=== PATIENT | female | born 2000 | race Caucasian/White ===

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

== ENCOUNTER 2020-01-08 15:30 | Outpatient (CLI) | payer OTHER, SELFPAY ==
[2020-01-08 16:12] LABS: HCT 37.9 % (36.0-46.0); HGB 12.8 g/dL (12.0-15.5); Mean Corp. HGB Concentration 33.8 g/dL (32.0-36.0); Mean Corpuscular Hemoglobin 29.2 pg (27.0-33.0); Mean Corpuscular Volume 86.3 fL (80-95); Mean Platelet Volume 8.6 fL (8.0-11.0); Platelet Count 410 x1000/uL (130-400); RBC 4.39 m/cumm (4.00-5.20); RBC Distribution Width 11.6 % (11.7-14.6); White Blood Cell Count 5.07 k/cumm (4.4-10.8)
[2020-01-08 16:53] LABS: Ferritin 52 ng/mL (8-252); TSH 0.45 uIU/mL (0.52-4.13)
[2020-01-11 06:43] LABS: Vitamin D 25 Total 10.2 ng/ml (30-100)
== END 2020-01-08 15:50 ==
PROVIDERS: PCP Family Medicine; Visit Provider Nurse Practitioner Psychiatric/Mental Health
DX: R53.83 Other fatigue (principal)
CPT/HCPCS: 36415; 82306; 85027; 82728; 84443

== ENCOUNTER 2020-01-28 11:01 | Outpatient (CLI) | payer OTHER, SELFPAY ==
[2020-01-28 12:29] LABS: ALT 20 U/L (14-59); AST 11 U/L (15-37); Albumin 3.6 g/dL (3.4-5.0); Alkaline Phosphatase 102 U/L (46-116); Anion Gap 9.5 mmol/L (3-11); BUN 9 mg/dL (7-18); Bilirubin, Total 0.2 mg/dL (0.2-1.0); CO2 25.5 mmol/L (21.0-32.0); CREATININE 0.95 mg/dL (0.55-1.02); Chloride 104 mmol/L (98-107); Glucose 109 mg/dL (74-106); Potassium 3.9 mmol/L (3.5-5.1); Sodium 139 mmol/L (136-145); TSH (W/Ref FT4) 0.47 uIU/mL (0.52-4.13); Total Protein 7.1 g/dL (6.4-8.2)
[2020-01-28 12:40] LABS: T4 13.9 ug/mL (4.7-13.3)
[2020-01-28 16:27] LABS: T3, Total 176 ng/dL (97-169)
[2020-01-29 09:44] LABS: Thyroglobulin Antibody <15 U/mL (<=60)
[2020-01-29 09:47] LABS: Thyroperoxidase Antibody <28 U/mL (<=60)
[2020-02-01 10:55] LABS: FREE T4 1.08 ng/dL (0.78-1.34)
[2020-02-05 13:06] LABS: Thyroid Stimulating Immunoglob <1.0 TSI index (<=1.3)
== END 2020-01-28 11:21 ==
PROVIDERS: PCP Family Medicine; Visit Provider Family Medicine
DX: R53.83 Other fatigue (principal); R25.1 Tremor, unspecified; E05.80 Other thyrotoxicosis without thyrotoxic crisis or storm
CPT/HCPCS: 36415; 80053; 84436; 84439; 84443; 84445; 84480; 86376; 86800

== ENCOUNTER 2020-02-11 09:33 | Outpatient (CLI) | payer OTHER, SELFPAY ==
[2020-02-14 02:51] LABS: SARS-CoV-2 RNA Undetected (Undetected); SARS-CoV-2 Specimen Source Nasopharynx
== END 2020-02-11 09:53 ==
PROVIDERS: PCP Family Medicine; Visit Provider Nurse Practitioner Family
DX: R50.9 Fever, unspecified (principal); R06.02 Shortness of breath
CPT/HCPCS: U0003

== ENCOUNTER 2020-02-18 08:08 | Outpatient (CLI) | payer OTHER, SELFPAY ==
--- NOTE | 2020-02-18 10:00 | DI.RAD_ITS ---
EXAM: XR CHEST 2V PA LATERAL CLINICAL HISTORY: FEVER, R50.9,COUGH,R05,NEG FOR COVID TECHNIQUE: 2D digital imaging was performed. COMPARISON: XR CHEST 2V PA LATERAL from 09/27/2019 FINDINGS: The heart is not enlarged. The lungs are clear and well expanded. No pleural effusion seen. Mediastin al contours appear intact. IMPRESSION: Normal chest
== END 2020-02-18 08:28 ==
PROVIDERS: PCP Family Medicine; Visit Provider Family Medicine
DX: R50.9 Fever, unspecified (principal); R05 Cough
CPT/HCPCS: 71046

== ENCOUNTER 2020-03-01 00:59 | Outpatient (CLI) | payer OTHER, SELFPAY ==
[2020-03-01 17:12] LABS: FREE T4 1.02 ng/dL (0.76-1.46); TSH (W/Ref FT4) 0.48 uIU/mL (0.36-3.74)
[2020-03-01 21:39] LABS: T3, Total 186 ng/dL (97-169)
[2020-03-02 09:12] LABS: FSH 5.1 mIU/mL (See Note); LH 2.5 mIU/mL (See Note)
[2020-03-02 09:31] LABS: Thyroglobulin Antibody <15 U/mL (<=60)
[2020-03-04 13:37] LABS: Thyroperoxidase Antibody <28 U/mL (<=60)
[2020-03-04 23:50] LABS: Thyroid Stimulating Immunoglob <1.0 TSI index (<=1.3)
== END 2020-03-01 01:19 ==
PROVIDERS: PCP Family Medicine; Visit Provider Family Medicine
DX: R23.2 Flushing (principal); E05.80 Other thyrotoxicosis without thyrotoxic crisis or storm; R25.1 Tremor, unspecified; R53.83 Other fatigue
CPT/HCPCS: 36415; 83001; 83002; 84439; 84443; 84445; 84480; 86376; 86800

== ENCOUNTER 2020-03-11 16:34 | Outpatient (REF) | payer OTHER, SELFPAY ==
[2020-03-11 19:19] LABS: PROTEIN 20.6 mg/dL (0.0-11.9)
[2020-03-11 19:41] LABS: TOTAL PROTEIN,URINE TIMED 123.6 mg/24hr (0.0-149.1); Total Volume 600 ml
[2020-03-16 16:57] LABS: Urine Volume 600 mL
[2020-03-17 02:15] LABS: Metanephrines, U 64 mcg/24 h; Normetanephrine, U 157 mcg/24 h; Total Metanephrines, U 221 mcg/24 h; Urine Volume 600 mL
[2020-03-18 09:18] LABS: 5-Hydroxyindoleacetic Acid, U 2.8 mg/24 h (<=6.1); Urine Volume 600 mL
[2020-03-18 19:28] LABS: Histamine, 24hr Urine 0.024 mg/24 h
[2020-03-31 13:00] LABS: Prostaglandin D2, Random Ur 103 ng/L
== END 2020-03-11 16:54 ==
LOC: NCHCN 16:34
PROVIDERS: PCP Family Medicine; Visit Provider Family Medicine
DX: R23.2 Flushing (principal)
CPT/HCPCS: 84150; 81050; 82384; 83088; 83497; 83835; 84155

== ENCOUNTER 2020-04-08 01:47 | Outpatient (CLI) | payer OTHER, SELFPAY ==
[2020-04-08 14:19] LABS: TSH 0.31 uIU/mL (0.36-3.74); Vitamin B12 234 pg/mL (193-986)
[2020-04-08 14:32] LABS: ESR 25 mm/hr (0-20)
[2020-04-08 14:37] LABS: FREE T4 1.19 ng/dL (0.76-1.46)
[2020-04-08 22:00] LABS: T3,Free 3.5 pg/mL (2.8-5.3)
[2020-04-11 10:31] LABS: Vitamin D 25 Total 82.2 ng/ml (30-100)
[2020-04-11 13:44] LABS: Adrenocorticotropic Hormone, P <5.0 pg/mL
[2020-04-11 14:10] LABS: ANA Interpretation Negative (Negative)
== END 2020-04-08 02:07 ==
PROVIDERS: PCP Family Medicine; Visit Provider Internal Medicine Endocrinology, Diabetes & Metabolism
DX: R23.2 Flushing (principal); E55.9 Vitamin D deficiency, unspecified; R53.82 Chronic fatigue, unspecified; T78.3XXD Angioneurotic edema, subsequent encounter
CPT/HCPCS: 36415; 82306; 82533; 85652; 82024; 82607; 82652; 84439; 84443; 84481; 86038

== ENCOUNTER 2020-06-27 02:31 | Outpatient (CLI) | payer OTHER, SELFPAY ==
[2020-06-27 11:59] LABS: Vitamin D 25 Total 68.6 ng/ml (30-100)
[2020-06-27 12:04] LABS: TSH 0.42 uIU/mL (0.36-3.74); Vitamin B12 692 pg/mL (193-986)
[2020-06-27 12:21] LABS: FREE T4 1.16 ng/dL (0.76-1.46)
[2020-06-27 16:07] LABS: T3,Free 2.7 pg/mL (2.8-5.3)
== END 2020-06-27 02:51 ==
PROVIDERS: PCP Family Medicine; Visit Provider Internal Medicine Endocrinology, Diabetes & Metabolism
DX: R23.2 Flushing (principal); E55.9 Vitamin D deficiency, unspecified; R53.82 Chronic fatigue, unspecified; T78.3XXD Angioneurotic edema, subsequent encounter; E05.90 Thyrotoxicosis, unspecified without thyrotoxic crisis or storm
CPT/HCPCS: 36415; 82306; 82607; 84439; 84443; 84481

== ENCOUNTER 2021-06-28 13:33 | Outpatient (REF) | payer OTHER, SELFPAY ==
[2021-06-28 20:05] LABS: HCT 37.3 % (36.0-46.0); HGB 12.2 g/dL (11.2-15.7); MCH 27.8 pg (27.0-33.0); MCHC 32.7 % (32.0-36.0); MPV 9.5 fL (8.0-11.0); Platelet Count 424 10^3/uL (130-400); RBC 4.39 10^6/uL (3.93-5.22); RDW 11.9 % (11.7-14.6); RDW-SD 36.9 fL; WBC 5.38 10^3/uL (4.4-10.8)
[2021-06-28 20:51] LABS: Ferritin 32 ng/mL (8-252); TSH 0.68 uIU/mL (0.36-3.74); Vitamin B12 412 pg/mL (193-986)
[2021-06-28 21:08] LABS: FREE T4 1.09 ng/dL (0.76-1.46)
[2021-06-29 00:46] LABS: Vitamin D 25 Total 45.2 ng/mL (30-100)
== END 2021-06-28 13:34 | disposition home or self-care (01) ==
LOC: NCHCN 13:33
PROVIDERS: PCP Family Medicine; Visit Provider Family Medicine
DX: E55.9 Vitamin D deficiency, unspecified (principal); E05.80 Other thyrotoxicosis without thyrotoxic crisis or storm; E53.8 Deficiency of other specified B group vitamins; D50.9 Iron deficiency anemia, unspecified
CPT/HCPCS: 82306; 85027; 82607; 82728; 84439; 84443

== ENCOUNTER 2021-10-04 17:08 | Outpatient (REF) | payer OTHER, SELFPAY ==
[2021-10-07 11:09] LABS: COVID-19 RT-PCR UVMMC Result Negative (Negative)
== END 2021-10-04 17:09 | disposition home or self-care (01) ==
LOC: LBN 17:08
PROVIDERS: PCP Family Medicine; Visit Provider Physician Assistant
DX: Z20.822 Contact with and (suspected) exposure to COVID-19 (principal)
CPT/HCPCS: U0003

== ENCOUNTER 2021-12-12 00:50 | Emergency (ER) | payer OTHER, SELFPAY ==
[2021-12-12 01:03] VITALS: BP 118/74; PULSE 113; RESP 16; TEMP 36.6; O2SAT 100
[2021-12-12 01:18] LABS: Abs Immature Grans 0.03 10^3/uL (0.0-0.06); Absolute Basophil Count 0.07 10^3/uL (0.0-0.2); Absolute Lymphocyte Count 2.32 10^3/uL (1.2-3.4); Absolute Monocyte Count 0.51 10^3/uL (0.1-0.8); Basophils % 0.6; Eosinophils % 1.8; HCT 35.3 % (36.0-46.0); HGB 11.5 g/dL (11.2-15.7); Immature Grans % 0.3; Lymphocytes % 21.3; MCH 28.5 pg (27.0-33.0); MCHC 32.6 % (32.0-36.0); MCV 87.6 fL (80-95); MPV 8.8 fL (8.0-11.0); Monocytes % 4.7; Neutrophils % 71.3; Nucleated RBC 0 %; Platelet Count 373 10^3/uL (130-400); RBC 4.03 10^6/uL (3.93-5.22); RDW 11.7 % (11.7-14.6); RDW-SD 37.3 fL; WBC 10.87 10^3/uL (4.4-10.8)
[2021-12-12 01:19] LABS: Absolute Neutrophil Count 7.75 10^3/uL (1.2-6.7)
[2021-12-12] MEDS: Normal Saline 1,000 ML 1000 ML IV (01:20)
[2021-12-12] MEDS: MORPHine 4 MG/ML SYR IVP (01:20)
--- NOTE | 2021-12-12 01:25 | W.ED.GENAD ---
Discharge Plan Disposition Patient Disposition: HOME Condition: Good Discharge Details Clinical Impression: Right kidney stone Primary Care Provider: Nida Peralta ED Provider: Christiano Lambert Home Meds and New Rx's Prescriptions: New tamsulosin [Flomax] 0.4 mg capsule 0.4 mg PO DAILY Qty: 5 RF: 0 cephalexin 500 mg capsule 500 mg PO QID 5 Days Qty: 20 RF: 0 Continued bupropion HCl (smoking deter) 150 mg tablet extended release 12 hr 150 mg PO DAILY RF: 0 albuterol sulfate [Proventil HFA] 90 mcg/actuation HFA aerosol inhaler 2 puff inhalation Q6H PRN (Reason: shortness of breath or wheezing) Qty: 8.5 RF: 0 benzonatate 100 mg capsule 100 mg PO TID PRN (Reason: cough) Qty: 14 RF: 0 norethindrone-e.estradiol-iron [Junel Fe 24] 1 mg-20 mcg (24)/75 mg (4) tablet 1 tab PO DAILY Qty: 28 RF: 12 ibuprofen 200 MG capsule 400 mg PO PRN RF: 0 fluoxetine [Prozac] 40 mg capsule 60 mg PO DAILY RF: 0 cetirizine 10 mg tablet 10 mg PO DAILY RF: 0 epinephrine [EpiPen 2-Sarthak] 0.3 mg/0.3 mL auto-injector 0.3 mg IM ONCE RF: 0 topiramate [Topamax] 25 mg tablet 25 mg PO DAILY Qty: 30 RF: 11 ergocalciferol (vitamin D2) 50,000 unit tablet 50,000 unit PO .every 2 weeks RF: 0 lamotrigine 25 mg tablet 25 mg PO HS RF: 0 fluticasone propionate [Flonase Allergy Relief] 50 mcg/actuation spray,suspension 1 spray intranasal DAILY RF: 0 Discharge Instructions Instructions: Kidney Stones (ED) Additional Instructions: At this time you have evidence of a small kidney stone. Will likely pass shortly as it is near the end of its course. We have sent a prescription for Flomax to your pharmacy, this will help it pass more quickly. Please take it as directed. You can stop taking the medication once your pain is completely gone. Please take the antibiotic Keflex as directed. This is also been sent to your pharmacy. Please use the strainer to strain and collect the kidney stone. This can then be analyzed by your family doctor. We have sent you home with a small bottle of Drake pain pills. Please take these only as needed. In the meantime you can take Tylenol or Motrin as needed for pain. If you notice any worsening of your symptoms, or any new symptoms such as vomiting, diarrhea, fever, chills, shortness of breath, chest pain, numbness, weakness, or fainting , please return immediately to the emergency department for reevaluation. Please follow up with your primary care provider as soon as possible for reassessment and reevaluation. As always, it was a pleasure participating in your medical care today. Referrals: Nida Peralta MD [Primary Care Provider] - Medical Decision Making 21-year-old female with a past medical history of endometriosis, reactive airway disease, who presents today for evaluation of right-sided flank pain. Patient states that at 10 PM she developed right-sided right-sided flank pain. She describes it as a sharp and achy in nature. Does not radiate anywhere else except for the flank. Earlier this morning she did have some generalized abdominal achiness, but that resolved. She does admit to mild difficulty urinating, but does state that she has had no burning with urination, blood, nausea vomiting or diarrhea. She is not on her period. She denies any previous abdominal surgeries. She does have a family history of kidney stones. She did take NSAIDs prior to arrival and this did not help her symptoms. Other complaints at no other complaints at this time. No other modifying factors. Demonstrates physical exam demonstrates mild right-sided CVA tenderness. However she has no abdominal tenderness on palpation. No pain to McBurney's point, negative Riggs sign. No vaginal complaints. Differential is highest for UTI versus kidney stone. Less likely for appendicitis. We will get a urinalysis, and then determine next steps for CT imaging after that. We will monitor closely treat the patient's pain and reassess 3:06 AM Laboratory work-up has returned unremarkable. Significant elevation in the WBC count, no bandemia. Renal function stable. Urinalysis shows moderate blood, small leuk esterase, 20-50 RBCs, 5-10 WBCs. Negative nitrites. Patient's pain notably improved. CT scan shows evidence of a very small 2 mm stone in the distal right ureter. Symptoms notably clinically inconsistent with a septic stone at this time. Out of an abundance of precaution to prevent any significant infection we will give a dose of ceftriaxone here, as well as a dose of Flomax. Will give Keflex for home use out of abundance of precaution. Patient stable for discharge with close follow-up with PCP in the 24 to 48 hours. Discussed concerning red flags for which to return. I have extensively reviewed the treatment plan and discharge instructions with the patient and their family. I have addressed all patient concerns at this time. The patient and family was made aware of what symptoms to monitor for that would warrant a return to the emergency department. Discussed the plan with the patient and family, they demonstrate verbal understanding and agreement with our assessment and plan at this time. The documentation in this chart was dictated using [employer] dictation software. Please excuse any dictation errors. FINDINGS: Liver: Hepatomegaly and diffuse fatty infiltrationNo mass. Gallbladder and bile ducts: Normal. No calcified stones. No ductal dilation. Pancreas: Normal. No ductal dilation. Spleen: Normal. No splenomegaly. Adrenal glands: Normal. No mass. Kidneys and ureters: Distal right ureteral calculus measuring 2 mm suspected axial image 68 with minimal/mild right hydroureteronephrosis. Mild renal scarring on the right. Left renal cyst Stomach and bowel: Unremarkable. No obstruction. No mucosal thickening. Appendix: No evidence of appendicitis. Intraperitoneal space: Unremarkable. No free air. No significant fluid collection. Vasculature: Unremarkable. No abdominal aortic aneurysm. Lymph nodes: Unremarkable. No enlarged lymph nodes. Urinary bladder: Unremarkable as visualized. Reproductive: Unremarkable as visualized. Bones/joints: Unremarkable. No acute fracture. Soft tissues: Unremarkable. IMPRESSION: Minimal/mild right hydroureteronephrosis secondary to a presumed distal right ureteral calculus measuring approximately 2 mm Thank you for allowing us to participate in the care of your patient. Dictated and Authenticated by: Nicolas Hampton MD 12/12/2021 3:05 AM Eastern Time ([place] & [place]) HPI General Date/Time Provider Initiated Documentation: 12/12/21 00:51. HPI Narrative: 21-year-old female with a past medical history of endometriosis, reactive airway disease, who presents today for evaluation of right-sided flank pain. Patient states that at 10 PM she developed right-sided right-sided flank pain. She describes it as a sharp and achy in nature. Does not radiate anywhere else except for the flank. Earlier this morning she did have some generalized abdominal achiness, but that resolved. She does admit to mild difficulty urinating, but does state that she has had no burning with urination, blood, nausea vomiting or diarrhea. She is not on her period. She denies any previous abdominal surgeries. She does have a family history of kidney stones. She did take NSAIDs prior to arrival and this did not help her symptoms. Other complaints at no other complaints at this time. No other modifying factors. Related Data Home Medications Medication Instructions Recorded Confirmed ibuprofen 400 mg PO PRN tab-cap 12/05/17 12/12/21 fluoxetine 40 mg capsule 60 mg PO DAILY tab-cap 04/10/19 12/12/21 norethindrone 1 mg-ethinyl 1 tab PO DAILY #28 tab 04/29/20 12/12/21 estradiol 20 mcg (24)-iron 75 mg (4) tablet cetirizine 10 mg tablet 10 mg PO DAILY 09/21/20 12/12/21 epinephrine 0.3 mg/0.3 mL 0.3 mg IM ONCE 09/21/20 12/12/21 injection, auto-injector topiramate 25 mg tablet 25 mg PO DAILY #30 tab 04/04/21 12/12/21 ergocalciferol (vitamin D2) 50,000 50,000 unit PO .every 2 weeks tab 06/28/21 12/12/21 unit tablet lamotrigine 25 mg tablet 25 mg PO HS tab 06/28/21 12/12/21 albuterol sulfate 90 mcg/actuation 2 puff INHALATION Q6H PRN #8.5 g 10/04/21 11/21/21 aerosol inhaler benzonatate 100 mg capsule 100 mg PO TID PRN #14 cap 10/04/21 10/04/21 bupropion HCl (smoking deter) 150 150 mg PO DAILY 10/04/21 12/12/21 mg tablet,12 hr sustained-release(smoking deterrent) fluticasone propionate 50 1 spray INTRANASAL DAILY 10/23/21 12/12/21 mcg/actuation nasal spray,suspension cephalexin 500 mg PO QID 5 Days #20 cap 12/12/21 tamsulosin [Flomax] 0.4 mg PO DAILY #5 cap 12/12/21 Previous Rx's Medication Instructions Recorded norethindrone 1 mg-ethinyl 1 tab PO DAILY #28 tab 04/29/20 estradiol 20 mcg (24)-iron 75 mg (4) tablet topiramate 25 mg tablet 25 mg PO DAILY #30 tab 04/04/21 albuterol sulfate 90 mcg/actuation 2 puff INHALATION Q6H PRN #8.5 g 10/04/21 aerosol inhaler benzonatate 100 mg capsule 100 mg PO TID PRN #14 cap 10/04/21 cephalexin 500 mg PO QID 5 Days #20 cap 12/12/21 tamsulosin [Flomax] 0.4 mg PO DAILY #5 cap 12/12/21 Allergies Allergy/AdvReac Type Severity Reaction Status Date / Time kiwi Allergy itchy Verified 12/12/21 01:07 FLU SHOT AdvReac Mild ARM Uncoded 12/12/21 01:07 SWELLS AT INJECTION SITE General Stated Complaint: FlankPain ELIAN: 3 Review of Systems All systems reviewed & are unremarkable except as noted in HPI and below PFSH All Active Problems (Updated 12/12/21 @ 03:16 by Christiano Lambert DO) Right kidney stone (Acute) Impacted cerumen, bilateral (Acute) Migraine headache without aura (Acute) Conductive hearing loss, external ear (Acute) Anxiety (Chronic) Abnormal thyroid function test (Acute) Hot flashes (Acute) Dysmenorrhea (Acute) Chronic daily headache (Acute 01/02/18) Medical History Allergic rhinitis Anxiety Depression Pneumonia PTSD (post-traumatic stress disorder) Stye left eye Tympanic membrane rupture rt side, spontaneous Surgical History H/O wisdom tooth extraction Family History Brother ADHD Father Sleep apnea Mother Prediabetes Social History Smoking/Tobacco Use Status: Never Smoking risk assessment performed?: Yes Alcohol Intake: never Drug use: Never Substance use type: does not use Household members: family Housing: house 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 3.ENT: Atraumatic external nose and ears. Moist MM. Neck: Symmetric, trachea midline, No thyromegaly. 4.CVS: +S1/S2, No murmurs or gallops. Peripheral pulses 2+ and equal in all extremities. Brisk capillary refill in all extremities. 5.RESP: Unlabored respiratory effort. Clear to auscultation bilaterally. No wheezes rales or rhonchi 6.GI: Soft, Nontender/Nondistended, mild right-sided CVA tenderness on percussion no pain at McBurney's point, negative Riggs sign 7.MSK: Normocephalic/Atraumatic, Extremities w/o deformity or ttp No cyanosis or clubbing, Normal movement of all extremities 8.Skin: Warm, Dry. No rashes or lesions. 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 Sensation grossly intact, no focal neurologic deficits. 10.Psych: (AAO) x3. Appropriate mood and affect Course Vital Signs Vital signs: Vital Signs Temperature 36.6 C 12/12/21 01:03 Pulse 113 H 12/12/21 01:03 Respiratory Rate 16 12/12/21 01:03 Blood Pressure 118/74 12/12/21 01:03 Pulse Oximetry 100 12/12/21 01:03 Temperature 36.6 C 12/12/21 01:03 Temperature Source Skin 12/12/21 01:03 Pulse 113 H 12/12/21 01:03 Respiratory Rate 16 12/12/21 01:03 Blood Pressure 118/74 12/12/21 01:03 Pulse Oximetry 100 12/12/21 01:03 Pain Level 10 12/12/21 01:20 Lab/Test Results Lab/Test Results: Laboratory Tests Range/Units 12/12/21 01:15 WBC (4.4-10.8) 10^3/uL 10.87 H RBC (3.93-5.22) 10^6/uL 4.03 Hgb (11.2-15.7) g/dL 11.5 Hct (36.0-46.0) % 35.3 L MCV (80-95) fL 87.6 MCH (27.0-33.0) pg 28.5 MCHC (32.0-36.0) % 32.6 RDW (11.7-14.6) % 11.7 Plt Count (130-400) 10^3/uL 373 MPV (8.0-11.0) fL 8.8 Immature Gran % 0.3 Neutrophils % 71.3 Lymphocytes % 21.3 Monocytes % 4.7 Eosinophils % 1.8 Basophils % 0.6 Nucleated RBC % % 0 Absolute Neutrophils (1.2-6.7) 10^3/uL 7.75 H Absolute Lymphocytes (1.2-3.4) 10^3/uL 2.32 Absolute Monocytes (0.1-0.8) 10^3/uL 0.51 Absolute Eosinophils (0.0-0.7) 10^3/uL 0.20 Absolute Basophils (0.0-0.2) 10^3/uL 0.07
[2021-12-12 01:31] LABS: ALT 16 U/L (14-59); AST 12 U/L (15-37); Albumin 3.6 g/dL (3.4-5.0); Alkaline Phosphatase 90 U/L (46-116); Anion Gap 5.1 mmol/L (3-11); BUN 11 mg/dL (7-18); Bilirubin, Total 0.1 mg/dL (0.2-1.0); CO2 22.9 mmol/L (21.0-32.0); Calcium 8.5 mg/dL (8.5-10.1); Chloride 102 mmol/L (98-107); Glucose 108 mg/dL (74-106); Potassium 3.3 mmol/L (3.5-5.1); Sodium 130 mmol/L (136-145); Total Protein 7.1 g/dL (6.4-8.2)
[2021-12-12] MEDS: Ondansetron 4 MG/2 ML VIAL (01:41)
[2021-12-12 01:59] LABS: Bilirubin Negative (Negative); Blood Moderate (Negative); Clarity Sl Cloudy (Clear); Glucose Negative (Negative); Ketones Negative (Negative); Leukocyte Esterase Small (Negative); Nitrite Negative (Negative); Specific Gravity >= 1.030 (1.005-1.025); Urobilinogen 0.2 EU/dL (Up TO 0.2)
--- NOTE | 2021-12-12 02:00 | DI.CT_ITS ---
Exam(s) CT ABDOMEN PELVIS W EXAM: CT ABDOMEN PELVIS W CLINICAL HISTORY: right flank pain, r/o kidney stone TECHNIQUE: Imaging Protocol: Axial computed tomography images with coronal and sagittal reformatted images were created and reviewed CONTRAST MATERIAL: Intravenous: Omnipaque 350 Contrast volume:100 mL Oral: No COMPARISON: No exams were available for comparison FINDINGS: ABDOMEN: Lung Bases: Normal where visualized. Liver: Normal density. No measurable mass. Portal, Superior Mesenteric, and Splenic Veins: Unremarkable. Gallbladder and Biliary Tract: No radiodense calculus or dilation. Pancreas: Normal density, no abnormal calcifications or inflammatory process. Spleen: Normal. Adrenals: No masses seen. Kidneys: Normal size, contour and axis. There is a 4 mm stone in the distal right ureter causing very mild hydronephrosis. The stone lies approximately 5 cm from the UVJ. There is mild delay and enhan cement of the right kidney secondary to the stone. Bilateral simple renal cysts. No follow-up is re commended. Abdominal Aorta: Abdominal portion non-dilated. Bowel: No obstruction or bowel wall thickening. No evidence of appendicitis. Peritoneal Cavity: No ascites, collection or mesenteric inflammatory response. No free air. Lymph Nodes: Within normal limits. Bones: Within normal limits for the patient's age. Soft Tissues: Unremarkable. PELVIS: Bladder: Symmetric distention, no gross wall thickening. Reproductive Organs: Unremarkable as visualized. Lymph Nodes: Within normal limits. Bones: Within normal limits for the patient's age. IMPRESSION: 4 mm distal right ureteral stone causing mild hydronephrosis. The stone lies proximally 5 cm from th e right UVJ. RADIATION DOSE DELIVERED: 719.18mGy.cm Total DLP DATA REPOSITORY: All CT scans at this facility are submitted to the National Radiology Data Registry (NRDR) Dose Index Registry (DIR) with the [employer] (ACR). RADIATION OPTIMIZATION: All CT scans at this facility use at least one of these dose optimization te chniques: automated exposure control; mA and/or kV adjustment per patient size (includes targeted exa ms where dose is matched to clinical indication); or iterative reconstruction.
[2021-12-12 02:01] LABS: Bacteria Few HPF (Negative); Epithelial Cells Few HPF (Negative); RBC 20-50 HPF (0-2)
[2021-12-12 02:02] LABS: C & S Indicated? Yes; Crystals Negative HPF (Negative); Mucus Negative (Negative)
[2021-12-12 02:14] VITALS: BP 111/69; PULSE 82; RESP 16; O2SAT 97
[2021-12-12] MEDS: Omnipaque 350 MG/ML 100 ML BTL IJ (02:27)
[2021-12-12] MEDS: Normal Saline Flush 10 ML SYR IVP (02:51)
--- NOTE | 2021-12-12 03:05 | DI.VRAD_ITS ---
PROCEDURE INFORMATION: Exam: CT Abdomen And Pelvis With Contrast Exam date and time: 12/12/2021 2:05 AM Age: 21 years old Clinical indication: Patient HX: Right flank pain, R/O kidney stone TECHNIQUE: Imaging protocol: Computed tomography of the abdomen and pelvis with contrast. Radiation optimization: All CT scans at this facility use at least one of these dose optimization techniques: automated exposure control; mA and/or kV adjustment per patient size (includes targeted exams where dose is matched to clinical indication); or iterative reconstruction. Contrast material: OMNIPAQUE 350; Contrast volume: 100 ml; Contrast route: INTRAVENOUS (IV); COMPARISON: CR XR CHEST 2V PA LATERAL 02/18/2020 10:11 AM FINDINGS: Liver: Hepatomegaly and diffuse fatty infiltrationNo mass. Gallbladder and bile ducts: Normal. No calcified stones. No ductal dilation. Pancreas: Normal. No ductal dilation. Spleen: Normal. No splenomegaly. Adrenal glands: Normal. No mass. Kidneys and ureters: Distal right ureteral calculus measuring 2 mm suspected axial image 68 with minimal/mild right hydroureteronephrosis. Mild renal scarring on the right. Left renal cyst Stomach and bowel: Unremarkable. No obstruction. No mucosal thickening. Appendix: No evidence of appendicitis. Intraperitoneal space: Unremarkable. No free air. No significant fluid collection. Vasculature: Unremarkable. No abdominal aortic aneurysm. Lymph nodes: Unremarkable. No enlarged lymph nodes. Urinary bladder: Unremarkable as visualized. Reproductive: Unremarkable as visualized. Bones/joints: Unremarkable. No acute fracture. Soft tissues: Unremarkable. IMPRESSION: Minimal/mild right hydroureteronephrosis secondary to a presumed distal right ureteral calculus measuring approximately 2 mm Dictated and Authenticated by: Nicolas Hampton MD. Ordering:CALEB Alvarado MD
[2021-12-12] MEDS: cefTRIAXone 1 GM/50 ML BAG IVPB (03:23)
[2021-12-12] MEDS: Tamsulosin 0.4 MG CAPCR PO (03:23)
[2021-12-12 03:48] VITALS: BP 97/56; PULSE 99; RESP 16; O2SAT 98
== END 2021-12-12 03:57 | disposition home or self-care (01) ==
PROVIDERS: Emergency Provider Student in an Organized Health Care Education/Training Program; PCP Family Medicine
DX: R20.1 Hypoesthesia of skin (principal)
CPT/HCPCS: 80053; 81025; 96361; 96365; 96375; 99285; 74177; 81003; 81015; 85025; 87086; 99284; J0696; J2270; J2405; J3490

== ENCOUNTER 2021-12-19 18:42 | Outpatient (REF) | payer OTHER, SELFPAY | END 2021-12-19 18:43 | disposition home or self-care (01) | LOC: LBN 18:42 | PROVIDERS: PCP Family Medicine; Visit Provider Nurse Practitioner Family | DX: R30.0 Dysuria (principal) | CPT/HCPCS: 87086 ==

== ENCOUNTER 2021-12-26 20:31 | Outpatient (REF) | payer OTHER, SELFPAY | END 2021-12-26 20:32 | disposition home or self-care (01) | LOC: NCHCN 20:31 | PROVIDERS: PCP Family Medicine; Visit Provider Nurse Practitioner Family | DX: R30.0 Dysuria (principal) | CPT/HCPCS: 87086 ==

== ENCOUNTER 2022-01-18 16:29 | Outpatient (REF) | payer OTHER, SELFPAY ==
[2022-01-25 10:57] LABS: Source: Passed Stone
== END 2022-01-18 16:30 | disposition home or self-care (01) ==
LOC: NCHCN 16:29
PROVIDERS: PCP Family Medicine; Visit Provider Family Medicine
DX: N20.0 Calculus of kidney (principal)
CPT/HCPCS: 82365

== ENCOUNTER 2022-08-31 16:12 | Emergency (ER) | payer OTHER, SELFPAY ==
[2022-08-31 16:18] VITALS: BP 104/67; PULSE 113; RESP 20; TEMP 36.8; O2SAT 94
[2022-08-31 17:42] LABS: Bilirubin Moderate (Negative); Blood Large (Negative); Clarity Cloudy (Clear); Glucose Negative (Negative); Ketones >=160 mg/dL (Negative); Leukocyte Esterase Negative (Negative); Nitrite Negative (Negative); Specific Gravity >= 1.030 (1.005-1.025); Urobilinogen 0.2 EU/dL (Up TO 0.2)
[2022-08-31 17:48] LABS: Bacteria Few HPF (Negative); C & S Indicated? No/Sq. Contamination; Casts Negative LPF (Negative); Crystals Negative HPF (Negative); Epithelial Cells Many HPF (Negative); Mucus Negative (Negative); RBC >50 HPF (0-2)
--- NOTE | 2022-08-31 17:51 | W.ED.GENAD ---
Discharge Plan Disposition Patient Disposition: HOME Condition: Stable Discharge Details Clinical Impression: Renal stones Primary Care Provider: Nida Peralta ED Provider: Francisco Stacy Home Meds and New Rx's Prescriptions: New ondansetron 4 mg tablet,disintegrating 4 mg PO Q8H PRN (Reason: nausea and vomiting) Qty: 30 0RF nitrofurantoin monohyd/m-cryst [Macrobid] 100 mg capsule 100 mg PO Q12H 5 Days Qty: 10 0RF Rx Instructions: must administer with a meal/food oxycodone 5 mg tablet 5 mg PO TID PRNQty: 10 0RF Continued bupropion HCl (smoking deter) 150 mg tablet extended release 12 hr 150 mg PO DAILY albuterol sulfate [Proventil HFA] 90 mcg/actuation HFA aerosol inhaler 2 puff inhalation Q6H PRN (Reason: shortness of breath or wheezing) Qty: 8.5 0RF benzonatate 100 mg capsule 100 mg PO TID PRN (Reason: cough) Qty: 14 0RF tamsulosin 0.4 mg capsule 0.4 mg PO DAILY Qty: 14 0RF oxycodone 5 mg capsule 5 mg PO Q6H MDD 4 PRN (Reason: pain) Qty: 10 0RF norethindrone-e.estradiol-iron [Junel Fe 24] 1 mg-20 mcg (24)/75 mg (4) tablet 1 tab PO DAILY Qty: 28 12RF ibuprofen 200 MG capsule 400 mg PO PRN cetirizine 10 mg tablet 10 mg PO DAILY epinephrine [EpiPen 2-Sarthak] 0.3 mg/0.3 mL auto-injector 0.3 mg IM ONCE Rx Instructions: as a single dose topiramate [Topamax] 25 mg tablet 25 mg PO DAILY Qty: 30 11RF ergocalciferol (vitamin D2) 50,000 unit tablet 50,000 unit PO .every 2 weeks fluticasone propionate [Flonase Allergy Relief] 50 mcg/actuation spray,suspension 1 spray intranasal DAILY Rx Instructions: administer into each nostril fluoxetine [Prozac] 40 mg capsule 40 mg PO DAILY Discharge Instructions Instructions: Kidney Stones (ED) Additional Instructions: if still having pain next week follow up with Dr. Bejarano if you feel more ill, have persistent vomiting or fevers return to the emergency department Medical Decision Making 22 yo female with hx of kidney stones comes in with left flank pain for several days. She saw dr. bejarano for this earlier this week and had a renal u/s showing left hydro and was told she needs a ct, started to have n/v so came here. She denies fevers, chills, chest pain, dyspnea. She has left oblique and lower back area pain, no abdominal tenderness. Given her history and presentation suspect kidney stone, will obtain ct to further evaluate pt feels better no n/v and now wants to eat. CT does show 3mm left uvj stone. She remains stable, does have some wbc's negative nitrites, she does state she has had some burning with urination, will cover with antibiotics, no fevers so doubt infected stone at this time. She will f/u with urology and return precautions given Differential Diagnosis Differential Diagnosis: kidney stone, renal colic, pyelo Medical Records Medical records reviewed: Yes I reviewed the patient's medical records. Imaging Data Radiologic Study: Attestation: I personally reviewed and interpreted this imaging study as follows: Imaging: CT Scan Radiologist's impression: IMPRESSION: There is a 3 mm calculus present at the intramural portion of the left ureteral vesicular junction with moderate left hydroureter, moderate left hydronephrosis and mild perinephric stranding. Lab Data Lab results reviewed: Yes I reviewed the patient's lab results. HPI General Mode of arrival: ambulatory. Date/Time Provider Initiated Documentation: 08/31/22 17:10. Limitations to Documentation: no limitations. Information obtained by: patient. History of Present Illness 22 year old F presents to the emergency department with the chief complaint of left flank pain, described as moderate, Patient started experiencing this day(s) (5) and it has been constant. No relieving factors improve symptom(s), No exacerbating factors reported . Patient notes denies chest pain and fever/chills. Patient did receive the following treatments prior to arrival, none Related Data Home Medications Medication Instructions Recorded Confirmed ibuprofen 200 mg capsule 400 mg PO PRN 12/05/17 08/31/22 norethindrone 1 mg-ethinyl 1 tab PO DAILY #28 tabs 04/29/20 08/31/22 estradiol 20 mcg (24)-iron 75 mg (4) tablet () cetirizine 10 mg tablet 10 mg PO DAILY 09/21/20 08/31/22 epinephrine 0.3 mg/0.3 mL 0.3 mg IM ONCE 09/21/20 08/31/22 injection, auto-injector (EpiPen 2-Sarthak) topiramate 25 mg tablet (Topamax) 25 mg PO DAILY #30 tabs 04/04/21 08/31/22 ergocalciferol (vitamin D2) 50,000 50,000 unit PO .every 2 weeks 06/28/21 08/31/22 unit tablet albuterol sulfate 90 mcg/actuation 2 puff inhalation Q6H PRN 10/04/21 08/31/22 aerosol inhaler (Proventil HFA) shortness of breath or wheezing #8.5 grams benzonatate 100 mg capsule 100 mg PO TID PRN cough #14 caps 10/04/21 08/31/22 bupropion HCl (smoking deter) 150 150 mg PO DAILY 10/04/21 08/31/22 mg tablet,12 hr sustained-release(smoking deterrent) fluticasone propionate 50 1 spray intranasal DAILY 10/23/21 08/31/22 mcg/actuation nasal spray,suspension (Flonase Allergy Relief) fluoxetine 40 mg capsule (Prozac) 40 mg PO DAILY 02/01/22 08/31/22 oxycodone 5 mg capsule 5 mg PO Q6H PRN pain #10 caps 08/28/22 08/31/22 tamsulosin 0.4 mg capsule 0.4 mg PO DAILY #14 caps 08/28/22 08/31/22 nitrofurantoin 100 mg PO Q12H 5 days #10 caps 08/31/22 monohydrate/macrocrystals 100 mg capsule (Macrobid) ondansetron 4 mg disintegrating 4 mg PO Q8H PRN nausea and 08/31/22 tablet vomiting #30 tabs oxycodone 5 mg tablet 5 mg PO TID PRN #10 tabs 08/31/22 Previous Rx's Medication Instructions Recorded norethindrone 1 mg-ethinyl 1 tab PO DAILY #28 tabs 04/29/20 estradiol 20 mcg (24)-iron 75 mg (4) tablet (Junel Fe ) topiramate 25 mg tablet (Topamax) 25 mg PO DAILY #30 tabs 04/04/21 albuterol sulfate 90 mcg/actuation 2 puff inhalation Q6H PRN 10/04/21 aerosol inhaler (Proventil HFA) shortness of breath or wheezing #8.5 grams benzonatate 100 mg capsule 100 mg PO TID PRN cough #14 caps 10/04/21 oxycodone 5 mg capsule 5 mg PO Q6H PRN pain #10 caps 08/28/22 tamsulosin 0.4 mg capsule 0.4 mg PO DAILY #14 caps 08/28/22 nitrofurantoin 100 mg PO Q12H 5 days #10 caps 08/31/22 monohydrate/macrocrystals 100 mg capsule (Macrobid) ondansetron 4 mg disintegrating 4 mg PO Q8H PRN nausea and 08/31/22 tablet vomiting #30 tabs oxycodone 5 mg tablet 5 mg PO TID PRN #10 tabs 08/31/22 Allergies Allergy/AdvReac Type Severity Reaction Status Date / Time kiwi Allergy itchy Verified 06/05/22 15:34 FLU SHOT AdvReac Mild ARM Uncoded 06/05/22 15:34 SWELLS AT INJECTION SITE General Stated Complaint: FlankPain ELIAN: 3 Review of Systems All systems reviewed & are unremarkable except as noted in HPI and below Constitutional Constitutional: Denies chills, Denies fever(s) and Denies weakness Cardiovascular Cardiovascular: Denies chest pain and Denies dyspnea Respiratory Respiratory: Denies cough and Denies dyspnea Integumentary/Breasts Skin/Breast: Denies rash Neurologic Neurologic: Denies weakness Psychiatric Psychiatric: Denies depression PFSH All Active Problems (Updated 08/31/22 @ 19:12 by Francisco Stacy MD) Renal stones (Chronic) Impacted cerumen, bilateral (Acute) Migraine headache without aura (Acute) Conductive hearing loss, external ear (Acute) Anxiety (Chronic) Abnormal thyroid function test (Acute) Hot flashes (Acute) Dysmenorrhea (Acute) Chronic daily headache (Acute 01/02/18) Medical History Allergic rhinitis Anxiety Asthma Depression Dissociative episodes Pneumonia PTSD (post-traumatic stress disorder) Stye left eye Tympanic membrane rupture rt side, spontaneous Vitamin D deficiency Surgical History H/O wisdom tooth extraction Family History Brother ADHD Father Sleep apnea Mother Prediabetes Social History Smoking/Tobacco Use Status: Never Smoking risk assessment performed?: Yes Alcohol Intake: never Drug use: Never Substance use type: does not use Household members: family Housing: house current occupation: unemployed - corporate travel manager [employer] Pets and animals: Yes Pets and animals: cat(s) What type of physical activity do you participate in: walking Seatbelt use: always Do you feel safe in your relationship?: Yes Female Reproductive History Menstrual control method: pills History History 0 Para Hx # Term Pregnancies Multiple births Hx # Pregnancies Ectopic pregnancies AB induced Hx Number of Living Children AB spontaneous Exam Const General: no acute distress Orientation: alert HENMT Head: normal to inspection Ears: external ears normal General nose exam: external nose normal Mouth: moist mucous membranes Eyes General: appearance normal, both eyes and all related structures Neck Neck: normal visual inspection Resp Effort & Inspection: normal respiratory effort and able to speak in complete sentences Cardio Rate: regular rate GI Palpation: soft and nontender Skin General skin exam: no rashes or lesions noted Neuro General: patient alert and patient oriented x3 Extrem General: normal to inspection Psych Mental Status: mental status grossly normal Course Vital Signs Vital signs: Vital Signs Temperature 36.8 C 08/31/22 16:18 Pulse 113 H 08/31/22 16:18 Respiratory Rate 20 08/31/22 16:18 Blood Pressure 104/67 08/31/22 16:18 Pulse Oximetry 94 08/31/22 16:18 Temperature 36.8 C 08/31/22 16:18 Pulse 113 H 08/31/22 16:18 Respiratory Rate 20 08/31/22 16:18 Respiratory Effort Non-Labored 08/31/22 17:44 Blood Pressure 104/67 08/31/22 16:18 Pulse Oximetry 94 08/31/22 16:18 Oxygen Delivery Method Room Air 08/31/22 16:18 Oxygen Flow Rate 0 08/31/22 16:18 Pain Level 5 08/31/22 17:44 Lab/Test Results Lab/Test Results: Laboratory Tests Range/Units 08/31/22 17:24 Urine Color (Yellow) Brown Urine Clarity (Clear) Cloudy Urine pH (5-8) 6.0 Ur Specific [place] (1.005-1.025) >= 1.030 H Urine Protein (Negative) mg/dL 100 H Urine Ketones (Negative) mg/dL >=160 H Urine Blood (Negative) Large H Urine Nitrite (Negative) Negative Urine Bilirubin (Negative) Moderate H Urine Urobilinogen (Up TO 0.2) EU/dL 0.2 Ur Leukocyte Esterase (Negative) Negative Urine RBC (0-2) HPF >50 H Urine WBC (0-5) HPF 10-20 H Ur Epithelial Cells (Negative) HPF Many Urine Crystals (Negative) HPF Negative Urine Bacteria (Negative) HPF Few Urine Casts (Negative) LPF Negative Urine Mucus (Negative) Negative Ur Culture Indicated? No/Sq. Contamination Urine Glucose (Negative) mg/dL Negative
[2022-08-31] MEDS: Ketorolac 15 MG/ML VIAL IVP (17:56)
[2022-08-31] MEDS: Ondansetron 4 MG/2 ML VIAL IVP (17:56)
[2022-08-31] MEDS: Normal Saline 1,000 ML 1000 ML IV (17:57)
--- NOTE | 2022-08-31 18:00 | DI.CT_ITS ---
Exam(s) CT RENAL COLIC WO EXAM: CT RENAL COLIC WO CLINICAL HISTORY: left flank pain. TECHNIQUE: Imaging Protocol: Axial computed tomography images with coronal and sagittal reformatted images were created and reviewed CONTRAST MATERIAL: Intravenous: none Oral: None COMPARISON: CT CT RENAL COLIC WO from 12/27/2021 FINDINGS: VISUALIZED LUNG BASES: No nodules nor pleural effusions evident. ABDOMEN: There is no ascites. LIVER: There are no obvious focal hepatic lesions evident of this noninfused study. GALLBLADDER/BILIARY: No obvious gallbladder pathology. CBD is not dilated. PANCREAS: No evidence of pancreatic mass nor dilatation of the pancreatic duct. SPLEEN: Spleen is not enlarged. No obvious intrasplenic lesions. ADRENALS: There are no significant adrenal masses. KIDNEYS:There is a small cyst in the superior pole of left kidney again noted, measuring 1.3 x 1 2 cm . There is a small 2 millimeter calculus in the left kidney. There is mild dilatation left collecti ng system including left ureter. This is related to a calculus at the left ureterovesical junction m easuring 2-3 millimeters. There are no calculi in the opposite-right ureter (as was the case on 12/12). No solid renal masses identified.. ABDOMINAL AORTA: Abdominal aorta is not enlarged. LYMPH NODES: There is no retroperitoneal nor paraaortic adenopathy. ABDOMINAL WALL: No evidence of significant anterior abdominal wall nor inguinal hernia. GI: There is no evidence of bowel obstruction, free air, nor abscess. PELVIS: LYMPH NODES: There is no intrapelvic nor inguinal adenopathy. GI: No evidence of appendicitis.No evidence of sigmoid diverticulitis. URINARY BLADDER: Bladder is mostly collapsed. REPRODUCTIVE: Uterus and ovaries unremarkable. No free fluid in the pelvis OSSEOUS: No significant osseous lesions. No fractures. SI joints unremarkable. IMPRESSION: 1. There is mild hydronephrosis and hydroureter on the left side due to a 2-3 millimeter intramural c alculus at left ureterovesical junction level. There is a solitary remaining 2 millimeter calculus i n the left kidney. Given this patient's young age and history of bilateral renal calculi (see CT sca n December 2021), consideration for medullary sponge kidney workup recommended. 2. Small benign cyst in the left kidney again noted. RADIATION DOSE DELIVERED: 695.66mGy.cm Total DLP DATA REPOSITORY: All CT scans at this facility are submitted to the National Radiology Data Registry (NRDR) Dose Index Registry (DIR) with the [employer] (ACR). RADIATION OPTIMIZATION: All CT scans at this facility use at least one of these dose optimization te chniques: automated exposure control; mA and/or kV adjustment per patient size (includes targeted exa ms where dose is matched to clinical indication); or iterative reconstruction.
[2022-08-31 18:01] LABS: Abs Immature Grans 0.05 10^3/uL (0.0-0.06); Absolute Basophil Count 0.05 10^3/uL (0.0-0.2); Absolute Eosinophil Count 0.05 10^3/uL (0.0-0.7); Absolute Monocyte Count 0.87 10^3/uL (0.1-0.8); Absolute Neutrophil Count 9.93 10^3/uL (1.2-6.7); Basophils % 0.4; Eosinophils % 0.4; Immature Grans % 0.4; Lymphocytes % 13.4; MCH 29.4 pg (27.0-33.0); MCHC 34.3 % (32.0-36.0); MCV 86 fL (80-95); MPV 8.7 fL (8.0-11.0); Monocytes % 6.9; Neutrophils % 78.5; Platelet Count 350 10^3/uL (130-400); RBC 4.08 10^6/uL (3.93-5.22); RDW 11.7 % (11.7-14.6); RDW-SD 36.3 fL; WBC 12.65 10^3/uL (4.4-10.8)
[2022-08-31 18:06] VITALS: BP 109/73; PULSE 88; RESP 16; O2SAT 98
[2022-08-31 18:14] LABS: ALT 14 U/L (14-59); AST 11 U/L (15-37); Albumin 3.7 g/dL (3.4-5.0); Alkaline Phosphatase 97 U/L (46-116); Anion Gap 15.7 mmol/L (3-11); BUN 14 mg/dL (7-18); Bilirubin, Total 0.4 mg/dL (0.2-1.0); CO2 20.3 mmol/L (21.0-32.0); CREATININE 1.5 mg/dL (0.55-1.02); Calcium 9.1 mg/dL (8.5-10.1); Chloride 101 mmol/L (98-107); Estimated GFR 50.22 (mL/min/1.73m2); Glucose 86 mg/dL (74-106); Potassium 3.7 mmol/L (3.5-5.1); Sodium 137 mmol/L (136-145); Total Protein 7.8 g/dL (6.4-8.2)
--- NOTE | 2022-08-31 18:50 | DI.VRAD_ITS ---
PROCEDURE INFORMATION: Exam: CT Abdomen And Pelvis Without Contrast Exam date and time: 08/31/2022 6:17 PM Age: 22 years old Clinical indication: Other: Left flank pain TECHNIQUE: Imaging protocol: Computed tomography of the abdomen and pelvis without contrast. COMPARISON: CT ABDOMEN PELVIS W 12/12/2021 2:31 AM FINDINGS: Lungs: The lungs are normal. There is no evidence of focal pulmonary consolidation. Pleural spaces: There is no evidence of pneumothorax. There are no pleural effusions present. Heart: There is mild pericardial thickening present. The cardiac structures are otherwise normal. Liver: There are no focal liver lesions present. There is no evidence of intrahepatic or extrahepatic biliary ductal dilation. Gallbladder and bile ducts: The gallbladder is normal. There is no cholelitiasis, wall thickening or pericholecystic fluid to suggest cholecystitis. Pancreas: The pancreas is normal. Spleen: The spleen is normal. Adrenal glands: The adrenal glands are normal. Kidneys and ureters: There is a 3 mm calculus present at the intramural portion of the left ureteral vesicular junction with moderate left hydroureter, moderate left hydronephrosis and mild perinephric stranding. There is a nonobstructing calculus present within the inferior pole of the left kidney measuring approximately 1-2 mm. Stomach and bowel: There is moderate increased colonic fecal content. The colon is mildly distended. These findings suggest a moderate degree of constipation. Clinical correlation recommended. There is no evidence of intestinal obstruction. No diverticulitis is present. Appendix: A normal appendix is identified. There is no evidence of distention or periappendiceal inflammation to suggest appendicitis. Intraperitoneal space: There is no free intraperitoneal air. There is no evidence of free intraperitoneal or pelvic fluid. There are no soft tissue masses or fluid collections. Vasculature: The aorta is normal without evidence of significant atherosclerosis or aneurysmal disease. The peripheral arterial vascular system visualized is unremarkable. The portal venous system visualized is unremarkable. The venous system visualized is unremarkable. Lymph nodes: There is no evidence of lymphadenopathy. Urinary bladder: There is nonspecific bladder wall thickening. This may be related to incomplete bladder filling. Reproductive: The uterus is normal. The ovaries are normal. Bones/joints: The skeletal structures show no evidence of fracture or other acute processes. Soft tissues: The extra-abdominal soft tissues are normal. IMPRESSION: There is a 3 mm calculus present at the intramural portion of the left ureteral vesicular junction with moderate left hydroureter, moderate left hydronephrosis and mild perinephric stranding. Dictated and Authenticated by: Vipul Jc MD. Ordering:ZINA Singh MD
[2022-08-31 19:31] VITALS: BP 103/98; PULSE 89; RESP 20; O2SAT 99
== END 2022-08-31 19:40 | disposition home or self-care (01) ==
PROVIDERS: Emergency Provider Emergency Medicine; PCP Family Medicine
DX: N13.2 Hydronephrosis with renal and ureteral calculous obstruction (principal)
CPT/HCPCS: 80053; 96361; 96374; 96375; 99284; 74176; 81003; 81015; 85025; J1885; J2405

== ENCOUNTER 2023-01-29 11:10 | Outpatient (CLI) | payer OTHER, SELFPAY ==
[2023-01-29 13:12] LABS: HCT 39.2 % (36.0-46.0); HGB 13.1 g/dL (11.2-15.7); MCH 28.5 pg (27.0-33.0); MCHC 33.4 % (32.0-36.0); MCV 85 fL (80-95); MPV 9.1 fL (8.0-11.0); Platelet Count 392 10^3/uL (130-400); RDW 11.8 % (11.7-14.6); RDW-SD 36.4 fL; WBC 5.39 10^3/uL (4.4-10.8)
[2023-01-29 13:42] LABS: Vitamin D 25 Total 39.2 ng/mL (30-100)
[2023-01-29 13:56] LABS: ALT 17 U/L (14-59); AST 12 U/L (15-37); Albumin 3.5 g/dL (3.4-5.0); Alkaline Phosphatase 99 U/L (46-116); Anion Gap 9.4 mmol/L (3-11); BUN 12 mg/dL (7-18); Bilirubin, Total 0.1 mg/dL (0.2-1.0); CO2 24.6 mmol/L (21.0-32.0); CREATININE 1.1 mg/dL (0.55-1.02); Calcium 9.4 mg/dL (8.5-10.1); Chloride 106 mmol/L (98-107); Estimated GFR 72.86 (mL/min/1.73m2); Glucose 78 mg/dL (74-106); Potassium 3.9 mmol/L (3.5-5.1); Sodium 140 mmol/L (136-145); TSH (W/Ref FT4) 1.17 uIU/mL (0.36-3.74); Total Protein 7.6 g/dL (6.4-8.2); Vitamin B12 242 pg/mL (193-986)
== END 2023-01-29 11:11 | disposition home or self-care (01) ==
LOC: LBO 11:11
PROVIDERS: PCP Family Medicine; Visit Provider Family Medicine
DX: E53.8 Deficiency of other specified B group vitamins (principal); E55.9 Vitamin D deficiency, unspecified; D50.9 Iron deficiency anemia, unspecified; R53.83 Other fatigue
CPT/HCPCS: 36415; 80053; 82306; 85027; 82607; 84443

== ENCOUNTER 2023-04-23 01:29 | Outpatient (CLI) | payer OTHER, SELFPAY ==
--- NOTE | 2023-04-23 | DI.MRI_ITS ---
Exam(s) MR BRAIN WO EXAM: MR BRAIN WO CLINICAL HISTORY: CHRONIC FATIGUE SYNDROME,R53.82,TREMOR OF HANDS AND FACE,R25.1,? MS TECHNIQUE: Multiplanar multisequence MRI of the brain was performed. COMPARISON: No exams were available for comparison FINDINGS: CEREBRAL PARENCHYMA: There is no evidence of intracranial hemorrhage, mass effect, or shift of midline structures. There are no extra-axial fluid collections. Ventricles are not enlarged or shifted. There is no significant focal signal abnormality in the cerebellar hemispheres nor within the dmitry, m idbrain, and thalami. There is no abnormal signal abnormality in the periventricular white matter. No evidence of demyelin ating disease. There is no significant focal signal abnormality evident on diffusion imaging to suggest acute ischem ic event. SWI reveals no evidence microhemorrhages. PITUITARY GLAND: No mass nor parasellar abnormality. No obvious abnormality in the cavernous sinuses. FLOW VOIDS: The expected flow void are noted. No evidence of obvious aneurysm nor obvious vascular ma lformation. PARANASAL SINUSES: The visualized paranasal sinuses appear unremarkable. No obvious finding ORBITS: No obvious findings. IMPRESSION: No significant intracranial findings on this noninfused MRI scan of the brain. DATA REPOSITORY:
== END 2023-04-23 01:49 ==
LOC: DI 01:29
PROVIDERS: PCP Family Medicine; Visit Provider Family Medicine
DX: R53.82 Chronic fatigue, unspecified (principal); R25.1 Tremor, unspecified
CPT/HCPCS: 70551

== ENCOUNTER 2024-05-08 13:07 | Outpatient (REF) | payer OTHER, SELFPAY ==
[2024-05-08 16:14] LABS: HCT 38.5 % (36.0-46.0); MCH 28.6 pg (27.0-33.0); MCHC 33.8 % (32.0-36.0); MCV 85 fL (80-95); MPV 9.6 fL (8.0-11.0); Platelet Count 361 10^3/uL (130-400); RBC 4.54 10^6/uL (3.93-5.22); RDW 11.6 % (11.7-14.6); RDW-SD 35.5 fL; WBC 4.35 10^3/uL (4.4-10.8)
[2024-05-08 16:47] LABS: Ferritin 40 ng/mL (8-252)
[2024-05-09 00:07] LABS: HIV-1/2 Ag & Ab Screen Negative (Negative)
[2024-05-09 00:09] LABS: Hepatitis C Ab w Rflx HCV PCR Negative (Negative)
== END 2024-05-08 13:08 | disposition home or self-care (01) ==
LOC: NCHCN 13:07
PROVIDERS: PCP Family Medicine; Visit Provider Family Medicine
DX: Z00.00 Encounter for general adult medical examination without abnormal findings (principal); D50.9 Iron deficiency anemia, unspecified; Z11.4 Encounter for screening for human immunodeficiency virus [HIV]; Z11.59 Encounter for screening for other viral diseases
CPT/HCPCS: 85027; 86803; 87389; 82728

== ENCOUNTER 2025-05-28 14:52 | Outpatient (REF) | payer OTHER, SELFPAY ==
[2025-05-28 16:34] LABS: HCG Qual (Serum) Negative
[2025-05-28 16:50] LABS: TSH (W/Ref FT4) 0.45 uIU/mL (0.36-3.74)
[2025-05-28 22:52] LABS: FSH 8.3 mIU/mL (See Note); LH 19.1 mIU/mL (See Note)
== END 2025-05-28 14:53 | disposition home or self-care (01) ==
LOC: NCHCN 14:52
PROVIDERS: PCP Family Medicine; Visit Provider Family Medicine
DX: N91.2 Amenorrhea, unspecified (principal)
CPT/HCPCS: 82670; 83001; 83002; 84146; 84443; 84703